=== PATIENT | male | born 1970 | race Caucasian/White ===

== ENCOUNTER 2019-03-05 20:00 | Emergency (ER) | payer BC ==
--- NOTE | 2019-03-05 20:29 | EDM.PDOC ---
ED HPI GENERAL MEDICAL PROBLEM - General Chief Complaint: Lower Extremity Injury/Pain Stated Complaint: RT FOOT SWELLING,ITCHING Time Seen by Provider: 03/05/19 20:29 Source of Information: Reports: Patient History Limitations: Reports: No Limitations - History of Present Illness INITIAL COMMENTS - FREE TEXT/NARRATIVE: pt arrived with swelling of the rt foot and ankle area. This i itchy but not painful. He was bite by a ladi fly onthe dorsum of the foot. He was also walking in the weeds. Both feet were in the weeds so he should be reacting on both feet. Onset: Today, Other ( pt did swell up with in a hour of being bite. ) Duration: Hour(s): Location: Reports: Lower Extremity, Right Associated Symptoms: Reports: No Other Symptoms denies pain Pain Score (Numeric/FACES): 0 - Related Data Allergies Allergy/AdvReac Type Severity Reaction Status Date / Time No Known Allergies Allergy Verified 03/05/19 20:23 Home Meds: Home Meds LORazepam [Ativan] 0.5 mg PO TID 03/05/19 [History] Review of Systems - Review of Systems Review Of Systems: See Below Constitutional: Reports: No Symptoms Eyes: Reports: No Symptoms Ears: Reports: No Symptoms Nose: Reports: No Symptoms Mouth/Throat: Reports: No Symptoms Respiratory: Reports: No Symptoms Cardiovascular: Reports: No Symptoms GI/Abdominal: Reports: No Symptoms Musculoskeletal: Reports: Other ( rt foot is swollen. ) Skin: Reports: No Symptoms Neurological: Reports: No Symptoms ED EXAM, GENERAL - Physical Exam Exam: See Below Free Text/Narrative:: pt has swelling of the rt foot and ankle. This is not painful Exam Limited By: No Limitations General Appearance: Alert, Anxious, Mild Distress Ears: Normal External Exam Nose: Normal Inspection Throat/Mouth: Normal Inspection Head: Atraumatic Neck: Normal Inspection Respiratory/Chest: No Respiratory Distress Course - Vital Signs Last Recorded V/S: Last Vital Signs Temp 36.3 C 03/05/19 20:16 Pulse 60 03/05/19 20:16 Resp 18 03/05/19 20:16 BP 137/77 03/05/19 20:16 Pulse Ox 96 03/05/19 20:16 - Orders/Labs/Meds Meds: Medications Discontinued Medications Generic Name Dose Route Start Last Admin Trade Name Freq PRN Reason Stop Dose Admin Triamcinolone Acetonide 60 mg 03/05/19 20:36 Kenalog-40 IM 03/05/19 20:37 ASDIRECTED ONE - Re-Assessments/Exams Free Text/Narrative Re-Assessment/Exam: 03/05/19 20:42 pt was given kenalog 60 mg im. Departure - Departure Time of Disposition: 20:37 Disposition: Home, Self-Care 01 Condition: Fair Clinical Impression: Allergic reaction - Discharge Information Referrals: PCP,None [Primary Care Provider] - Forms: ED Department Discharge Care Plan Goals: cool pack area, elevate, use benadryl 50 mg q6h prn for swelling and itching.
[2019-03-05] MEDS ORDERED: Triamcinolone Acetonide 40 MG/ML 1 ML MDV IM ONE (20:36)
== END 2019-03-05 20:57 | disposition home or self-care (01) ==
LOC: JP.ED 20:00
DX: T78.40XA Allergy, unspecified, initial encounter (principal); F41.9 Anxiety disorder, unspecified; Z79.899 Other long term (current) drug therapy
CPT/HCPCS: 96372; 99283; J3301